=== PATIENT | female | born 1975 | race Caucasian/White ===

== ENCOUNTER 2017-03-01 20:22 | Emergency (ER) | payer OTHER ==
[~2017-03-01] VITALS: Ht 162.6 cm; Wt 73.9 kg
[~2017-03-01 20:22] MED LIST: [UNRECOGNIZED DRUG - REMARK] PO
[2017-03-01 20:30] VITALS: TEMP 36.7; Ht 162.6 cm; Wt 73.9 kg
[2017-03-01] MEDS ORDERED: KETOROLAC TROMETHAMINE 60 MG/2 ML VIAL IM STA (21:12)
[2017-03-01] MEDS ORDERED: ONDANSETRON 4MG OD TAB PO ONE (21:15)
--- NOTE | 2017-03-01 21:39 | DIAGNOSTIC IMAGING REPORT ---
HEAD WITHOUT CONTRAST (CT) CT DOSE: 537.48 mGy.cm HISTORY: Mental status change atypical headache TECHNIQUE: Multiaxial CT images of the head were performed without the use of intravenous contrast. A dose lowering technique was utilized adhering to the principles of ALARA. Comparison: None. Findings: The paranasal sinuses and mastoid air cells are clear. The calvarium and skull base are intact. The ventricles and sulci are within normal limits. There is no mass, hematoma, midline shift, or acute infarct. Impression: No acute intracranial abnormality. The above report was generated using voice recognition software. It may contain grammatical, syntax or spelling errors. Electronically signed by: Tay Sutton M.D. 03/01/2017 9:37 PM Dictated Date/Time: 03/01/2017 9:37 PM
--- NOTE | 2017-03-01 21:45 | EMERGENCY ROOM VISIT NOTE ---
History Report prepared by Marilyn: Walt Beebe Under the Supervision of: Dr. Danielle Multani D.O. First contact with patient: 20:39 Chief Complaint: HEADACHE Stated Complaint: COMPLEX MIGRAINE- AURAL VISION,HEADACHE,NUMBESS History of Present Illness The patient is a 41 year old female who presents to the Emergency Room with complaints of a constant complex migraine beginning this evening. The patient states that she was at work, and it felt like something was on her glasses. She reports that she kept cleaning them, but she still could not read the screen. The patient notes that she has a history of complex migraines, but typically she loses her hearing. She states that she went home, and thirty minutes later, she developed her headache and nausea. The patient reports that her migraine is behind her eyes. She notes that her face and arms went numb, she was sensitive to noise, and could not find her words. The patient states that after 10 minutes , she was able to speak again. She reports that she went to the [facility] walk- in clinic, and she was told to go the ED. The patient notes that she used to take Imitrex, but she no longer keeps it at home because her last complex migraine was 1.5 years ago. The patient reports that she went to the [facility] and was given a shot of Tramadol IM, and that alleviated her symptoms. She states that her last brain scan was 3 years ago. The patient reports that she has a family history of complex migraines. She denies cough, cold, caffeine consumption, diarrhea, vomiting, trauma, and diet change. The patient denies a history of hypertension, diabetes mellitus, tobacco use, smoking, and hyperlipidemia. Source of History: patient Onset: this evening Position: head Quality: ache, other (complex migraine) Timing: constant Modifying Factors (Worsening): other (noise) Associated Symptoms: + nausea, + numbness (face and arms), No cough, No vomiting, No diarrhea Note: Associated symptoms: word searching Denies: cold, caffeine consumption, trauma, and diet change Review of Systems See HPI for pertinent positives & negatives. A total of 10 systems reviewed and were otherwise negative. Past Medical & Surgical Medical Problems: (1) IBS (irritable bowel syndrome) (2) Migraine Surgical Problems: (1) H/O: hysterectomy Family History FH: heart disease FHx: cancer Social History Smoking Status: Never Smoker Alcohol Use: none Drug Use: none Marital Status: Housing Status: unknown Occupation Status: employed Current/Historical Medications No Active Prescriptions or Reported Meds Allergies Coded Allergies: Latex1 -Allergic Contact Dermititis (Verified Allergy, Intermediate, HIVES RASH, 03/01/17) Adhesives (Verified Allergy, Unknown, PT. ALLERGIC TO ADHESIVE TAPE, ) Ciprofloxacin (Unverified Allergy, Unknown, UNKNOWN, 03/01/17) Nitrates, Organic (Verified Allergy, Unknown, 03/01/17) Nitrofurantoin (Verified Allergy, Unknown, 03/01/17) Sulfa Antibiotics (Verified Allergy, Unknown, ., 03/01/17) Physical Exam Vital Signs Date Time Temp Pulse Resp B/P (MAP) Pulse Ox O2 Delivery O2 Flow Rate FiO2 03/01/17 22:31 67 18 109/61 98 03/01/17 20:30 36.7 86 17 126/84 97 Room Air Physical Exam GENERAL: alert, anxious appearing, well nourished, no distress, non-toxic EYE EXAM: normal conjunctiva, PERRL and EOM's grossly intact OROPHARYNX: no exudate, no erythema, lips, buccal mucosa, and tongue normal and mucous membranes are moist NECK: supple, no nuchal rigidity, no adenopathy, non-tender LUNGS: Clear to auscultation. Normal chest wall mechanics HEART: no murmurs, S1 normal and S2 normal ABDOMEN: abdomen soft, non-tender, normo-active bowel sounds, no masses, no rebound or guarding. BACK: Back is symmetrical on inspection and there is no deformity, no midline tenderness, no CVA tenderness. SKIN: no rashes and no bruising UPPER EXTREMITIES: upper extremities are grossly normal. LOWER EXTREMITIES: No pitting edema. NEURO EXAM: Normal sensorium, cranial nerves II-XII grossly intact, normal speech, no gross weakness of arms, no gross weakness of legs. Medical Decision & Procedures ER Provider Diagnostic Interpretation: Radiology results have been interpreted by the radiologist and reviewed by me. HEAD WITHOUT CONTRAST (CT) CT DOSE: 537.48 mGy.cm HISTORY: Mental status change atypical headache TECHNIQUE: Multiaxial CT images of the head were performed without the use of intravenous contrast. A dose lowering technique was utilized adhering to the principles of ALARA. Comparison: None. Findings: The paranasal sinuses and mastoid air cells are clear. The calvarium and skull base are intact. The ventricles and sulci are within normal limits. There is no mass, hematoma, midline shift, or acute infarct. Impression: No acute intracranial abnormality. The above report was generated using voice recognition software. It may contain grammatical, syntax or spelling errors. Electronically signed by: Tay Sutton M.D. 03/01/2017 9:37 PM Dictated Date/Time: 03/01/2017 9:37 PM Medications Administered Medications (Trade) Dose Ordered Sig/Mattie Route Start Time Stop Time Status Last Admin Dose Admin Ketorolac Tromethamine (Toradol Inj) 60 mg NOW STAT IM 03/01/17 21:12 03/01/17 21:13 DC 03/01/17 21:23 60 MG Ondansetron HCl (Zofran Odt) 4 mg ONE ONCE PO 03/01/17 21:15 03/01/17 21:16 DC 03/01/17 21:24 4 MG ED Course 2058: The patient was evaluated in room B02. A complete history and physical exam was performed. 2111: Ordered Ketorolac Tromethamine 60mg IM 2114: Ordered Ondansetron HCl 4mg PO 2152: I reevaluated the patient, and she just received her medication. 2221: Upon reevaluation, the patient is feeling better. I discussed the findings and the treatment plan with the patient. She verbalizes agreement and understanding. The patient was discharged home. Medical Decision Differential Diagnosis includes but is not limited to headache, tension headache , cluster headache, migraine, subarachnoid hemorrhage, meningitis, mass, central venous thrombus, concussion, trauma and epidural/subdural hemorrhage. Pt with likely complex migraine given hx of similar sx and hx of atypical and complex migraines. No trauma. Sx improved here. No focal neuro deficits on bedside exam. Doubt cvs thrombus. Doubt occult infection. Pt improved here with usual migraine meds which she reports is similar to prior episodes also. Discussed sx to watch/return for, f/u as a precaution, she verbalized understanding and was agreeable with plan. Medication Reconcilliation Current Medication List: was personally reviewed by me Blood Pressure Screening Patient's blood pressure: Normal blood pressure Impression Primary Impression: Headache Additional Impression: Migraine Scribe Attestation The scribe's documentation has been prepared under my direction and personally reviewed by me in its entirety. I confirm that the note above accurately reflects all work, treatment, procedures, and medical decision making performed by me. Departure Information Dispostion Home / Self-Care Prescriptions No Active Prescriptions or Reported Meds Referrals Vanessa Reed D.O. (PCP) Forms HOME CARE DOCUMENTATION FORM, IMPORTANT VISIT INFORMATION Patient Instructions My [facility] Additional Instructions Please follow up with your family doctor as a precaution. If you have any worsening headaches, vision changes, vomiting, develop fevers, difficulty with speech, facial droop, arm or leg weakness, or unable to walk, worsening dizziness, or you have any other new concerns, please return the emergency room. Please drink plenty of water. Please avoid any strenuous activity until you're feeling better. Problem Qualifiers Primary Impression: Headache Headache type: unspecified Headache chronicity pattern: episodic headache Intractability: not intractable Qualified Codes: R51 - Headache Additional Impression: Migraine Migraine type: with aura Status migrainosus presence: without status migrainosus Intractability: not intractable Qualified Codes: G43.109 - Migraine with aura, not intractable, without status migrainosus
[2017-03-01 22:31] VITALS: BP 109/61; PULSE 67; O2SAT 98
== END 2017-03-01 22:31 | disposition home or self-care (01) ==
LOC: C.EDB 20:25
DX: G43.109 Migraine with aura, not intractable, without status migrainosus (principal); K58.9 Irritable bowel syndrome, unspecified; Z82.49 Family history of ischemic heart disease and other diseases of the circulatory system; Z80.9 Family history of malignant neoplasm, unspecified

== ENCOUNTER → 2017-10-05 | Outpatient (CLI) | payer OTHER ==
[2017-10-05 09:35] LABS: BASO % 0.2 %; BASO ABS # 0.01 K/uL (0-0.2); EOS % 1.4 %; EOS ABS # 0.08 K/uL (0-0.5); HEMATOCRIT 40.2 % (37-47); HEMOGLOBIN 13.8 g/dL (12.0-16.0); IG# 0.01 K/uL (0.00-0.02); LYMPH % 22.2 %; LYMPH ABS # 1.29 K/uL (1.2-3.4); MEAN CELL VOLUME 87.6 fL (80-100); MEAN CORPUSCULAR HEMOGLOBIN 30.1 pg (25-34); MEAN CORPUSCULAR HGB CONC 34.3 g/dl (32-36); MEAN PLATELET VOLUME 9.9 fL (7.4-10.4); MONO % 6.7 %; MONO ABS # 0.39 K/uL (0.11-0.59); NEUT % 69.3 %; NEUT ABS # 4.04 K/uL (1.4-6.5); PLATELET COUNT 265 K/uL (130-400); RED CELL DISTRIBUTION WIDTH CV 12.3 % (11.5-14.5); RED CELL DISTRIBUTION WIDTH SD 39.4 fL (36.4-46.3); WHITE BLOOD COUNT 5.82 K/uL (4.8-10.8)
[2017-10-05 09:52] LABS: ALBUMIN 3.8 gm/dl (3.4-5.0); ALT/SGPT 17 U/L (12-78); AST/SGOT 13 U/L (15-37); BLOOD UREA NITROGEN 11 mg/dl (7-18); CALCIUM 9.2 mg/dl (8.5-10.1); CARBON DIOXIDE 26 mmol/L (21-32); CHOLESTEROL 216 mg/dl (0-200); CREATININE 0.69 mg/dl (0.60-1.20); GLUCOSE 97 mg/dl (70-99); POTASSIUM 3.6 mmol/L (3.5-5.1); SODIUM 138 mmol/L (136-145)
[2017-10-05 10:03] LABS: ALKALINE PHOSPHATASE 84 U/L (45-117); LDL CHOLESTEROL CALCULATED 152 mg/dl; TOTAL PROTEIN 7.5 gm/dl (6.4-8.2)
== END | disposition home or self-care (01) ==
LOC: C.LAB1850 07:52
PROVIDERS: ATTEND Neuromusculoskeletal Medicine & OMM
DX: Z13.220 Encounter for screening for lipoid disorders (principal); Z13.1 Encounter for screening for diabetes mellitus; R68.89 Other general symptoms and signs